=== PATIENT | male | born 1940 | race Caucasian/White ===

== ENCOUNTER 2017-08-21 09:44 | Inpatient (IN) | payer MEDICARE, OTHER ==
[~2017-08-21] VITALS: Ht 177.8 cm; Wt 83.9 kg
[2017-08-21] MEDS ORDERED: IV NORMAL SALINE 250 ML BAG IV ONE (09:45)
[2017-08-21] MEDS ORDERED: SWABABLE VALVE TRANSFER SET EA MC ONE (09:45)
[2017-08-21] MEDS ORDERED: IOHEXOL 300MG/ML 100 ML INFUS..BTL IV ONE (09:45)
[2017-08-21] MEDS ORDERED: CARV6.25 PO (10:17)
[2017-08-21] MEDS ORDERED: ASPI81TA31 PO (10:17)
[2017-08-21] MEDS ORDERED: PANT20TA2 PO (10:17)
[2017-08-21] MEDS ORDERED: MEMA10TA PO (10:17)
[2017-08-21] MEDS ORDERED: ATOR20TA PO (10:17)
[2017-08-21] MEDS ORDERED: LEVO137T2 PO (10:17)
[2017-08-21] MEDS ORDERED: LOSA50TA21 PO (10:17)
[2017-08-21] MEDS ORDERED: CLOP75TA15 PO (10:17)
[2017-08-21] MEDS ORDERED: PANTOPRAZOLE SODIUM IV 40 MG in IV DEXTROSE 5% 100 ML IV ONE (10:30)
[2017-08-21 10:39] LABS: CARBON DIOXIDE 26 mmol/L (21-32); CHLORIDE 109 mmol/L (98-107); GLUCOSE 128 mg/dL (74-106); POTASSIUM 3.4 mmol/L (3.5-5.1); UREA NITROGEN, BLOOD 24 mg/dL (7-18)
[2017-08-21 10:43] LABS: BASOPHILS % (AUTO) 0.3 % (0.0-2.0); EOSINOPHILS # (AUTO) 0.1 K/uL (0.0-0.7); EOSINOPHILS % (AUTO) 0.5 % (0.0-7.0); LYMPHOCYTES # (AUTO) 0.7 K/uL (20.0-40.0); MEAN CORPUSCULAR HEMOGLOBIN 23.2 uug (23.8-33.4); MEAN CORPUSCULAR HGB CONC 32 g/dL (32.5-36.3); MEAN CORPUSCULAR VOLUME 72.7 fL (73.0-96.2); MONOCYTES # (AUTO) 0.4 K/uL (2.0-10.0); RED BLOOD CELL COUNT(AUTO) 2.96 MIL/uL (4.06-5.63)
[2017-08-21] MEDS ORDERED: PANTOPRAZOLE SODIUM 40 MG VIAL ONE ×2 (10:44→12:17)
[2017-08-21 10:45] LABS: ALANINE AMINOTRANSFERASE 17 U/L (16-63); ALKALINE PHOSPHATASE 63 U/L (50-136); ASPARTATE AMINOTRANSFERASE 17 U/L (15-37); BILIRUBIN,TOTAL 0.4 mg/dL (0.2-1.0); CREATINE KINASE, TOTAL 118 U/L (39-308); TOTAL PROTEIN, SERUM 6.5 g/dL (6.4-8.2)
[2017-08-21 11:06] LABS: LYMPHOCYTES % (AUTO) 6.6 % (20.5-51.5); MONOCYTES % (AUTO) 3.8 % (0.0-11.0); NEUTROPHILS % (AUTO) 88.8 % (38.5-71.5); PLATELET COUNT (AUTO) 141 K/uL (152-348); WHITE BLOOD COUNT (AUTO) 11.2 K/uL (3.6-10.2)
[2017-08-21 11:12] LABS: HEMOGLOBIN 6.9 g/dL (12.5-16.3)
[2017-08-21 11:13] LABS: HEMATOCRIT 21.5 % (36.7-47.1)
[2017-08-21 11:35] LABS: BAND % (MANUAL) 5 % (0-10); LYMPHOCYTES % (MANUAL) 5 % (20-40); METAMYELOCYTES % 1 % (0-1); MONOCYTES % (MANUAL) 1 % (2-10); NEUTROPHILS % (MANUAL) 88 % (42-75)
[2017-08-21] MEDS ORDERED: METRONIDAZOLE 500 MG/NS 100 ML PIGGYBACK IV ONE (12:00)
[2017-08-21] MEDS ORDERED: CIPROFLOXACIN IV 400 MG in PREMIXED 1 EACH IV SCH (12:00)
[2017-08-21] MEDS ORDERED: METRONIDAZOLE 500 MG/NS 100ML 100 ML IV ONE (12:17)
[2017-08-21 15:24] VITALS: BP 159/97
[2017-08-21] MEDS ORDERED: ACETAMINOPHEN 650 MG SUPP.RECT RC PRN (17:45)
[2017-08-21] MEDS ORDERED: MORPHINE SULFATE 2 MG/1 ML DISP.SYRIN IV PRN (17:45)
[2017-08-21] MEDS: PIPERACILLIN/TAZOBACTAM/D5W 50 ML IV SCH (18:00)
[2017-08-21] MEDS ORDERED: MORPHINE SULFATE 4 MG/1 ML DISP.SYRIN IV PRN (18:15)
[2017-08-21 20:00] VITALS: BP 152/65
[2017-08-21 20:09] LABS: IRON, SERUM 14 ug/dL (50-175)
[2017-08-21 22:30] VITALS: BP 149/64
[2017-08-21 22:50] VITALS: BP 141/54
[2017-08-21 23:05] VITALS: BP 127/55
[2017-08-21 23:35] VITALS: BP 112/58
[2017-08-22] VITALS (16 sets, daily range): BP systolic 113–177; BP diastolic 51–80
[2017-08-22] MEDS: POTASSIUM CHLORIDE 20 MEQ in IV D5 1/2 NS 1000 ML 1,000 ML IV PRN ×2 (01:59→23:55)
[2017-08-22] MEDS: PIPERACILLIN/TAZOBACTAM/D5W 50 ML IV SCH ×5 (01:59→23:55)
[2017-08-22 06:58] LABS: ALANINE AMINOTRANSFERASE 15 U/L (16-63); ALKALINE PHOSPHATASE 57 U/L (50-136); ASPARTATE AMINOTRANSFERASE 16 U/L (15-37); BILIRUBIN,TOTAL 0.5 mg/dL (0.2-1.0); CARBON DIOXIDE 26 mmol/L (21-32); CHLORIDE 112 mmol/L (98-107); CHOLESTEROL 104 mg/dL (<200); GLUCOSE 90 mg/dL (74-106); HDL CHOLESTEROL 29 mg/dL (40-60); MAGNESIUM 1.8 mg/dL (1.8-2.4); PHOSPHOROUS 3.5 mg/dL (2.5-4.9); POTASSIUM 3.2 mmol/L (3.5-5.1); TOTAL PROTEIN, SERUM 5.7 g/dL (6.4-8.2); UREA NITROGEN, BLOOD 16 mg/dL (7-18)
[2017-08-22 07:38] LABS: EOSINOPHILS # (AUTO) 0.1 K/uL (0.0-0.7); LYMPHOCYTES # (AUTO) 0.9 K/uL (20.0-40.0); MONOCYTES # (AUTO) 0.3 K/uL (2.0-10.0); MONOCYTES % (AUTO) 7.5 % (0.0-11.0); NEUTROPHILS # (AUTO) 3.3 K/uL (1.8-8.9)
[2017-08-22 07:59] LABS: BASOPHILS % (AUTO) 0.5 % (0.0-2.0); EOSINOPHILS % (AUTO) 1.4 % (0.0-7.0); MEAN CORPUSCULAR HEMOGLOBIN 24.8 uug (23.8-33.4); MEAN CORPUSCULAR HGB CONC 33 g/dL (32.5-36.3); MEAN CORPUSCULAR VOLUME 74.5 fL (73.0-96.2); NEUTROPHILS % (AUTO) 71.6 % (38.5-71.5); PLATELET COUNT (AUTO) 123 K/uL (152-348); RED BLOOD CELL COUNT(AUTO) 2.86 MIL/uL (4.06-5.63)
[2017-08-22 08:02] LABS: WHITE BLOOD COUNT (AUTO) 4.7 K/uL (3.6-10.2)
[2017-08-22 08:10] LABS: HEMOGLOBIN 7.1 g/dL (12.5-16.3)
[2017-08-22 08:11] LABS: HEMATOCRIT 21.3 % (36.7-47.1)
[2017-08-22] MEDS: PANTOPRAZOLE SODIUM 40 MG VIAL IV SCH (09:12)
[2017-08-22 11:26] LABS: BAND % (MANUAL) 1 % (0-10); EOSINOPHILS % (MANUAL) 1 % (0-8); LYMPHOCYTES % (MANUAL) 24 % (20-40); MONOCYTES % (MANUAL) 10 % (2-10); NEUTROPHILS % (MANUAL) 64 % (42-75)
[2017-08-22] MEDS ORDERED: POTASSIUM CHLORIDE 50 ML IV SCH (13:30)
[2017-08-22 13:33] LABS: TRIGLYCERIDES 91 MG/DL (30-150)
[2017-08-22] MEDS: LOSARTAN POTASSIUM 50 MG TABLET PO SCH (15:11)
[2017-08-22] MEDS: hydrALAZINE HCL 25 MG TABLET PO PRN (16:23)
[2017-08-22] MEDS: ENALAPRILAT DIHYDRATE INJ 2.5 MG in IV NORMAL SALINE 50 ML IV PRN (17:42)
[2017-08-22] MEDS ORDERED: NITROGLYCERIN OINT 1 GM PACKET TP PRN (18:15)
[2017-08-23] VITALS: BP 158/62
[2017-08-23] MEDS: ENALAPRILAT DIHYDRATE INJ 2.5 MG in IV NORMAL SALINE 50 ML IV PRN ×2 (00:46→06:47)
[2017-08-23 04:00] VITALS: BP 158/52
[2017-08-23] MEDS: PIPERACILLIN/TAZOBACTAM/D5W 50 ML IV SCH ×4 (05:09→23:57)
[2017-08-23 06:45] VITALS: BP 160/54
[2017-08-23 06:48] LABS: EOSINOPHILS # (AUTO) 0.1 K/uL (0.0-0.7); MEAN CORPUSCULAR HEMOGLOBIN 25.5 uug (23.8-33.4); MONOCYTES # (AUTO) 0.4 K/uL (2.0-10.0)
[2017-08-23 07:06] LABS: ALANINE AMINOTRANSFERASE 17 U/L (16-63); ALKALINE PHOSPHATASE 60 U/L (50-136); ASPARTATE AMINOTRANSFERASE 23 U/L (15-37); BILIRUBIN,TOTAL 0.6 mg/dL (0.2-1.0); CARBON DIOXIDE 29 mmol/L (21-32); CHLORIDE 109 mmol/L (98-107); GLUCOSE 100 mg/dL (74-106); MAGNESIUM 2.1 mg/dL (1.8-2.4); PHOSPHOROUS 3.4 mg/dL (2.5-4.9); POTASSIUM 3.1 mmol/L (3.5-5.1); TOTAL PROTEIN, SERUM 6.5 g/dL (6.4-8.2); UREA NITROGEN, BLOOD 8 mg/dL (7-18)
[2017-08-23 07:08] LABS: BASOPHILS % (AUTO) 0.7 % (0.0-2.0); EOSINOPHILS % (AUTO) 2.1 % (0.0-7.0); LYMPHOCYTES % (AUTO) 17.8 % (20.5-51.5); MEAN CORPUSCULAR HGB CONC 33 g/dL (32.5-36.3); MEAN CORPUSCULAR VOLUME 76.6 fL (73.0-96.2); MONOCYTES % (AUTO) 6.9 % (0.0-11.0); NEUTROPHILS # (AUTO) 4.1 K/uL (1.8-8.9); NEUTROPHILS % (AUTO) 72.5 % (38.5-71.5); RED BLOOD CELL COUNT(AUTO) 3.44 MIL/uL (4.06-5.63); WHITE BLOOD COUNT (AUTO) 5.7 K/uL (3.6-10.2)
[2017-08-23 07:12] LABS: HEMATOCRIT 26.4 % (36.7-47.1); HEMOGLOBIN 8.8 g/dL (12.5-16.3)
[2017-08-23 07:13] LABS: PLATELET COUNT (AUTO) 154 K/uL (152-348)
[2017-08-23] MEDS: PANTOPRAZOLE SODIUM 40 MG VIAL IV SCH (08:09)
[2017-08-23] MEDS: LOSARTAN POTASSIUM 50 MG TABLET PO SCH (08:10)
[2017-08-23 11:42] VITALS: BP 155/54
[2017-08-23] MEDS ORDERED: BISACODYL 5 MG TABLET.DR PO ONE (12:45)
[2017-08-23] MEDS ORDERED: GOLYTELY 4000 ML BOTTLE PO ONE (12:45)
[2017-08-23] MEDS ORDERED: IV LACTATED RINGERS SOLUTION 1,000 ML IV PRN (12:45)
[2017-08-23] MEDS ORDERED: PROPOFOL 200 MG/20 ML BOTTLE IV ONE (15:13)
[2017-08-23 15:19] VITALS: BP 141/55
[2017-08-23] MEDS ORDERED: POTASSIUM CHLORIDE 20 MEQ TAB.PRT.SR PO ONE (16:00)
[2017-08-23] MEDS: ONDANSETRON 4 MG/2 ML VIAL IV PRN (16:14)
[2017-08-23 20:00] VITALS: BP 143/77
[2017-08-24] VITALS: BP 125/54
[2017-08-24 00:31] LABS: *BILIRUBIN,URIN NEGATIVE (NEGATIVE); *BLOOD, URINE NEGATIVE (NEGATIVE); *CLARITY,URINE CLEAR (CLEAR); *COLOR,URINE YELLOW (YELLOW); *KETONES,URINE TRACE (NEGATIVE); *PROTEIN,URINE NEGATIVE (NEGATIVE); *UROBILINOGEN,URINE 0.2 E.U./dl (NORMAL); LEUKOCYTE ESTERASE ,URINE NEGATIVE (NEGATIVE); NITRITE, URINE NEGATIVE (NEGATIVE); PH,URINE 5.5 (5.0-8.0); UGLUCOSE NEGATIVE (NEGATIVE)
[2017-08-24 00:41] LABS: RBC,URINE NONE SEEN /HPF (0-3)
[2017-08-24 00:42] LABS: BACTERIA,URINE NONE SEEN /HPF (NONE SEEN); MUCUS,URINE FEW /LPF (0-FEW); SQUAMOUS EPITHELIAL CELL,UR FEW /HPF (NONE SEEN); WBC,URINE 0-3 /HPF (0-3)
[2017-08-24 04:00] VITALS: BP 154/75
[2017-08-24] MEDS: PIPERACILLIN/TAZOBACTAM/D5W 50 ML IV SCH ×4 (05:48→23:32)
[2017-08-24] MEDS: LOSARTAN POTASSIUM 50 MG TABLET PO SCH (08:32)
[2017-08-24] MEDS: PANTOPRAZOLE SODIUM 40 MG VIAL IV SCH (08:32)
[2017-08-24] MEDS: ONDANSETRON 4 MG/2 ML VIAL IV PRN (09:27)
[2017-08-24 11:14] VITALS: BP 125/62
[2017-08-24 13:30] LABS: BASOPHILS % (AUTO) 0.5 % (0.0-2.0); EOSINOPHILS # (AUTO) 0.1 K/uL (0.0-0.7); EOSINOPHILS % (AUTO) 0.8 % (0.0-7.0); HEMOGLOBIN 9.3 g/dL (12.5-16.3); LYMPHOCYTES # (AUTO) 0.7 K/uL (20.0-40.0); LYMPHOCYTES % (AUTO) 9.2 % (20.5-51.5); MEAN CORPUSCULAR HEMOGLOBIN 25.2 uug (23.8-33.4); MEAN CORPUSCULAR HGB CONC 33 g/dL (32.5-36.3); MEAN CORPUSCULAR VOLUME 76.2 fL (73.0-96.2); MONOCYTES # (AUTO) 0.3 K/uL (2.0-10.0); MONOCYTES % (AUTO) 4.3 % (0.0-11.0); NEUTROPHILS # (AUTO) 6.7 K/uL (1.8-8.9); NEUTROPHILS % (AUTO) 85.2 % (38.5-71.5); PLATELET COUNT (AUTO) 101 K/uL (152-348); RED BLOOD CELL COUNT(AUTO) 3.68 MIL/uL (4.06-5.63); WHITE BLOOD COUNT (AUTO) 7.8 K/uL (3.6-10.2)
[2017-08-24 13:34] LABS: CARBON DIOXIDE 26 mmol/L (21-32); CHLORIDE 111 mmol/L (98-107); CREATININE 1.1 mg/dL (0.6-1.3); GLUCOSE 170 mg/dL (74-106); POTASSIUM 3.5 mmol/L (3.5-5.1); UREA NITROGEN, BLOOD 10 mg/dL (7-18)
[2017-08-24 15:27] VITALS: BP 124/64
[2017-08-25 04:00] VITALS: BP 139/49
[2017-08-25] MEDS: PIPERACILLIN/TAZOBACTAM/D5W 50 ML IV SCH ×4 (05:28→23:25)
[2017-08-25] MEDS: PANTOPRAZOLE SODIUM 40 MG VIAL IV SCH (08:19)
[2017-08-25] MEDS: LOSARTAN POTASSIUM 50 MG TABLET PO SCH (08:19)
[2017-08-25 11:29] VITALS: BP 102/58
[2017-08-25 11:50] VITALS: BP 117/55
[2017-08-25] MEDS ORDERED: MAGNESIUM CITRATE 296 ML BOTTLE PO ONE (15:45)
[2017-08-25] MEDS ORDERED: BISACODYL 5 MG TABLET.DR PO ONE (15:45)
[2017-08-25 16:00] VITALS: BP_SYST 136; BP_SYST 145; BP_DIAS 67
[2017-08-25] MEDS: ONDANSETRON 4 MG/2 ML VIAL IV PRN (16:12)
[2017-08-25 20:00] VITALS: BP 160/67
[2017-08-25] MEDS: ATORVASTATIN 20 MG TABLET PO SCH (20:26)
[2017-08-25] MEDS: hydrALAZINE HCL 25 MG TABLET PO PRN (20:27)
[2017-08-26 04:51] VITALS: BP 146/65
[2017-08-26] MEDS: PIPERACILLIN/TAZOBACTAM/D5W 50 ML IV SCH ×4 (05:00→23:00)
[2017-08-26 07:27] LABS: BASOPHILS % (AUTO) 0.8 % (0.0-2.0); EOSINOPHILS # (AUTO) 0.3 K/uL (0.0-0.7); EOSINOPHILS % (AUTO) 5.7 % (0.0-7.0); HEMATOCRIT 28.7 % (36.7-47.1); HEMOGLOBIN 9.6 g/dL (12.5-16.3); MEAN CORPUSCULAR HEMOGLOBIN 25.6 uug (23.8-33.4); MEAN CORPUSCULAR HGB CONC 34 g/dL (32.5-36.3); MEAN CORPUSCULAR VOLUME 76.4 fL (73.0-96.2); MONOCYTES # (AUTO) 0.4 K/uL (2.0-10.0); MONOCYTES % (AUTO) 7.5 % (0.0-11.0); NEUTROPHILS # (AUTO) 3.3 K/uL (1.8-8.9); PLATELET COUNT (AUTO) 154 K/uL (152-348); RED BLOOD CELL COUNT(AUTO) 3.76 MIL/uL (4.06-5.63)
[2017-08-26 07:37] LABS: CARBON DIOXIDE 26 mmol/L (21-32); CHLORIDE 111 mmol/L (98-107); GLUCOSE 88 mg/dL (74-106); MAGNESIUM 2.4 mg/dL (1.8-2.4); PHOSPHOROUS 3.3 mg/dL (2.5-4.9); POTASSIUM 3.4 mmol/L (3.5-5.1); UREA NITROGEN, BLOOD 7 mg/dL (7-18)
[2017-08-26] MEDS ORDERED: IV LACTATED RINGERS SOLUTION 1,000 ML IV PRN (09:00)
[2017-08-26] MEDS: LOSARTAN POTASSIUM 50 MG TABLET PO SCH (09:30)
[2017-08-26] MEDS: PANTOPRAZOLE SODIUM 40 MG VIAL IV SCH (09:32)
[2017-08-26 11:05] VITALS: BP 152/74
[2017-08-26] MEDS ORDERED: POTASSIUM CHLORIDE 20 MEQ TAB.PRT.SR PO ONE (14:45)
[2017-08-26 15:05] VITALS: BP 114/50
[2017-08-26 19:00] VITALS: BP 131/70
[2017-08-26] MEDS: ATORVASTATIN 20 MG TABLET PO SCH (21:32)
[2017-08-27] MEDS: PIPERACILLIN/TAZOBACTAM/D5W 50 ML IV SCH ×3 (05:00→18:00)
[2017-08-27 06:48] LABS: BASOPHILS % (AUTO) 0.6 % (0.0-2.0); EOSINOPHILS # (AUTO) 0.3 K/uL (0.0-0.7); HEMATOCRIT 27.7 % (36.7-47.1); HEMOGLOBIN 9.1 g/dL (12.5-16.3); LYMPHOCYTES # (AUTO) 1.2 K/uL (20.0-40.0); LYMPHOCYTES % (AUTO) 20.9 % (20.5-51.5); MEAN CORPUSCULAR HEMOGLOBIN 25.3 uug (23.8-33.4); MEAN CORPUSCULAR HGB CONC 33 g/dL (32.5-36.3); MONOCYTES # (AUTO) 0.4 K/uL (2.0-10.0); MONOCYTES % (AUTO) 7.1 % (0.0-11.0); NEUTROPHILS # (AUTO) 3.8 K/uL (1.8-8.9); NEUTROPHILS % (AUTO) 66.4 % (38.5-71.5); PLATELET COUNT (AUTO) 166 K/uL (152-348); WHITE BLOOD COUNT (AUTO) 5.8 K/uL (3.6-10.2)
[2017-08-27 06:50] LABS: ALANINE AMINOTRANSFERASE 13 U/L (16-63); ALKALINE PHOSPHATASE 62 U/L (50-136); ASPARTATE AMINOTRANSFERASE 14 U/L (15-37); BILIRUBIN,TOTAL 0.3 mg/dL (0.2-1.0); CARBON DIOXIDE 27 mmol/L (21-32); CHLORIDE 108 mmol/L (98-107); CREATININE 1.1 mg/dL (0.6-1.3); GLUCOSE 92 mg/dL (74-106); MAGNESIUM 2.2 mg/dL (1.8-2.4); PHOSPHOROUS 3.3 mg/dL (2.5-4.9); POTASSIUM 3.7 mmol/L (3.5-5.1); TOTAL PROTEIN, SERUM 6.4 g/dL (6.4-8.2); UREA NITROGEN, BLOOD 9 mg/dL (7-18)
[2017-08-27] MEDS: PANTOPRAZOLE SODIUM 40 MG VIAL IV SCH (08:57)
[2017-08-27] MEDS: LOSARTAN POTASSIUM 50 MG TABLET PO SCH (08:58)
[2017-08-27] MEDS ORDERED: ASPIRIN EC 81 MG TABLET.DR PO SCH (09:00)
[2017-08-27 11:09] VITALS: BP 134/50
[2017-08-27] MEDS ORDERED: POTASSIUM CHLORIDE 20 MEQ TAB.PRT.SR PO ONE (11:45)
[2017-08-27 15:05] VITALS: BP 140/76
== END 2017-08-27 18:50 | disposition home or self-care (01) | DRG 371 ==
LOC: ER 09:44 → TELE 13:04 → MED 08-25 13:55
PROVIDERS: ADMIT Internal Medicine; ATTEND Internal Medicine
PROC: 30233N1 Transfusion of Nonautologous Red Blood Cells into Peripheral Vein, Percutaneous Approach (ICD-10-PCS; 2017-08-21)
PROC: 0DB68ZX Excision of Stomach, Via Natural or Artificial Opening Endoscopic, Diagnostic (ICD-10-PCS; principal; 2017-08-23 10:34)
PROC: 0DJD8ZZ Inspection of Lower Intestinal Tract, Via Natural or Artificial Opening Endoscopic (ICD-10-PCS; 2017-08-26)
DX: A04.9 Bacterial intestinal infection, unspecified (principal); K57.31 Diverticulosis of large intestine without perforation or abscess with bleeding; E88.09 Other disorders of plasma-protein metabolism, not elsewhere classified; D62 Acute posthemorrhagic anemia; D73.4 Cyst of spleen; D50.0 Iron deficiency anemia secondary to blood loss (chronic); G30.9 Alzheimer's disease, unspecified; F01.50 Vascular dementia, unspecified severity, without behavioral disturbance, psychotic disturbance, mood disturbance, and anxiety; F02.80 Dementia in other diseases classified elsewhere, unspecified severity, without behavioral disturbance, psychotic disturbance, mood disturbance, and anxiety; I11.9 Hypertensive heart disease without heart failure; K76.89 Other specified diseases of liver; Z79.02 Long term (current) use of antithrombotics/antiplatelets; Z79.82 Long term (current) use of aspirin; I25.10 Atherosclerotic heart disease of native coronary artery without angina pectoris; Z95.1 Presence of aortocoronary bypass graft; Z95.2 Presence of prosthetic heart valve; Z86.79 Personal history of other diseases of the circulatory system; E78.5 Hyperlipidemia, unspecified; E03.9 Hypothyroidism, unspecified; M51.46 Schmorl's nodes, lumbar region; E87.6 Hypokalemia; K29.70 Gastritis, unspecified, without bleeding; K44.9 Diaphragmatic hernia without obstruction or gangrene; I70.0 Atherosclerosis of aorta; K62.4 Stenosis of anus and rectum; R73.03 Prediabetes; N28.1 Cyst of kidney, acquired; T45.525A Adverse effect of antithrombotic drugs, initial encounter; Y92.009 Unspecified place in unspecified non-institutional (private) residence as the place of occurrence of the external cause
CPT/HCPCS: 36415; 70030-TC; 71045; 83550; 83735; 84100; 85025; 85610; 86850; 86900; 86901; 86920; 93005; A4217; A4663; C9113; J0744; J2270; J2405; J2543; J3480; J3490; J7040; J7050; P9016-BL; P9021; Q9967